=== PATIENT | male | born 1985 | race Caucasian/White ===

== ENCOUNTER 2019-11-29 23:41 | Emergency (ER) | payer OTHER ==
--- NOTE | 2019-11-29 23:59 | PDOC ---
Attending Attestation - Resident Resident Name: Lamonte Palafox - ED Attending Attestation I have performed the following: I have examined & evaluated the patient, The case was reviewed & discussed with the resident, I agree w/resident's findings & plan
[2019-11-30 00:06] VITALS: TEMP 98; BMI 22.2
--- NOTE | 2019-11-30 00:28 | PDOC ---
History of Present Illness - General Chief Complaint: Psychiatric Stated Complaint: PANICK ATTACK Time Seen by Provider: 11/29/19 23:55 - History of Present Illness Initial Comments: 11/30/19 00:22 34 yo M with h/o asthma, who p/w palpitations, sob, nervousness, tremors. Patient reports 3 weeks of intermittent SOB, palpitations, nervousness, and tremors with no identifiable triggers or alleviators. Symptoms resolve spontaneously following minutes. Patient unable to quantify amount of time. Patient denies KUO, vision change, cough, wheezing, orthopena, PND, leg swelling/pain, N/V, F,C, CP, SOB, urinary complaints, hematuria, BPR, abdominal pain, diarrhea, constipation, lightheadedness, weakness, sensory changes. PMHx: as noted above. Denies h/o PE/DVt, malignancy, CAD/WI, stress testing, hormone therapy, recent travels/surgery/prolonged immobilization, trauma. ROS: as noted SHx: Denies Etoh, IVDA, tobacco use Allergies: NKDA Past History - Past Medical History Allergies/Adverse Reactions: Allergies Allergy/AdvReac Type Severity Reaction Status Date / Time salmon oil Allergy Verified 11/29/19 23:56 sesame seed Allergy Verified 11/29/19 23:56 tree nut Allergy Verified 11/29/19 23:56 Asthma: Yes COPD: No Psychiatric Problems: Yes (x 3 weeks) - Psycho Social/Smoking Cessation Hx Smoking History: Current every day smoker Information on smoking cessation initiated: No Review of Systems - Review of Systems Comments:: 11/30/19 00:30 GENERAL/CONSTITUTIONAL: No fever or chills. No weakness. HEAD, EYES, EARS, NOSE AND THROAT: No change in vision. No ear pain or discharge. No sore throat. CARDIOVASCULAR: No chest pain or shortness of breath RESPIRATORY: No cough, wheezing, or hemoptysis. GASTROINTESTINAL: No nausea, vomiting, diarrhea or constipation. GENITOURINARY: No dysuria, frequency, or change in urination. MUSCULOSKELETAL: No joint or muscle swelling or pain. No neck or back pain. SKIN: No rash NEUROLOGIC: + tremors. No headache, vertigo, loss of consciousness, or change in strength/sensation. ENDOCRINE: No increased thirst. No abnormal weight change HEMATOLOGIC/LYMPHATIC: No anemia, easy bleeding, or history of blood clots. ALLERGIC/IMMUNOLOGIC: No hives or skin allergy. *Physical Exam - Vital Signs Last Vital Signs Temp Pulse Resp BP Pulse Ox 98 F 77 18 104/55 L 99 11/29/19 23:51 11/29/19 23:51 11/29/19 23:51 11/29/19 23:51 11/29/19 23:51 - Physical Exam 11/30/19 00:30 GENERAL: Awake, alert, and fully oriented, in no acute distress HEAD: No signs of trauma, normocephalic, atraumatic EYES: PERRLA, EOMI, sclera anicteric, conjunctiva clear ENT: Hearing grossly normal, nares patent, oropharynx clear without exudates. Moist mucosa NECK: Normal ROM, supple, no lymphadenopathy, JVD, or masses LUNGS: No distress, speaks full sentences, clear to auscultation bilaterally HEART: Regular rate and rhythm, normal S1 and S2, no murmurs, rubs or gallops, peripheral pulses normal and equal bilaterally. ABDOMEN: Soft, nontender, normoactive bowel sounds. No guarding, no rebound. No masses EXTREMITIES : BL antecubital track tian. Normal inspection, Normal range of motion, no edema. No clubbing or cyanosis NEUROLOGICAL: Cranial nerves II through XII grossly intact. Normal speech, normal gait, no focal sensorimotor deficits SKIN: Warm, Dry, normal turgor, no rashes or lesions noted ED Treatment Course - LABORATORY CBC & Chemistry Diagram: 11/30/19 00:07 11/30/19 00:07 Medical Decision Making - Medical Decision Making 11/30/19 00:25 34 yo M with h/o asthma, who p/w palpitations, sob, nervousness, tremors x 3 weeks intermittently. Vitals wnl, AF, A&Ox3. Exam notable for BL antecubital track tian. Otherwise unremarkable. Denies KUO, vision change, cough, wheezing, leg swelling/pain, N/V, F,C, CP, SOB, urinary complaints, hematuria, BPR, abdominal pain, diarrhea, constipation, lightheadedness, weakness, sensory changes. ACS /WI r/o. PERC neg PE. Will assess for thyroid dysfunction, electrolyte abnml, cardiac dyssarythmia, acid-base disturbances, toxic and metabolic derangements infection. Currently asymptomatic. Will reassess. Ed Course: Patient unwilling to provide urine 11/30/19 00:43 EKG: TWI V2-V2 NSR with absent FAIZA, STD. Nml interval duration and axis. Nml R wave progression. Absent Q waves. CBC: Unremarkable 11/30/19 00:48 Advised to f/u cardiology 11/30/19 01:13 Pt. walked out of ED 11/30/19 01:41 Laboratory Tests 11/30/19 11/30/19 00:07 00:07 WBC 6.5 Hgb 13.0 Hct 38.2 MPV 9.1 Sodium 141 Potassium 4.4 BUN 11.6 Creatinine 0.9 Troponin I < 0.02 TSH 0.90 Alcohol, Quantitative < 3 Patient discharged with return precautions. Discharge - Discharge Information Problems reviewed: Yes Clinical Impression/Diagnosis: Heart palpitations Condition: Stable Disposition: ELOPED - Admission No - Follow up/Referral Referrals: Osmar Cochran MD [Staff Physician] - - Patient Discharge Instructions Patient Printed Discharge Instructions: DI for Palpitations Additional Instructions: Please return to the emergency department with any new or worsening symptoms or concerns. Please follow up with your adolescent specialist and primary care physician within 72 hours. - Post Discharge Activity
--- NOTE | 2019-11-30 00:40 | PDOC ---
Attending Attestation - Resident Resident Name: Lamonte Palafox - ED Attending Attestation I have performed the following: I have examined & evaluated the patient, The case was reviewed & discussed with the resident, I agree w/resident's findings & plan - HPI HPI: 11/30/19 02:08 Pt is having a panic attack, he says, requesting ativan rx. - Physicial Exam PE: 11/30/19 02:10 Agree with resident exam - Medical Decision Making 11/30/19 02:09 Patient Name: Moreno JorgeBirth Date: 1985 Address: [address] [place] [id number]: Male Rx Written Rx Dispensed Drug Quantity Days Supply Prescriber Name Payment Method Dispenser lorazepam 1 mg tablet 12 6 Kang Tejada MD [id number] Patient Name: Moreno JorgeBirth Date: 1985 Address: [address] [place] [id number]: Male Rx Written Rx Dispensed Drug Quantity Days Supply Prescriber Name Payment Method Dispenser chlordiazepoxide 25 mg capsule 18 3 Sun Hall, [employer] [facility] Patient Name: Moreno JorgeBirth Date: 1985 Address: [address] [place] [id number]: Male Rx Written Rx Dispensed Drug Quantity Days Supply Prescriber Name Payment Method Dispenser methylphenidate 20 mg tablet 90 30 FingestDebbie dunn MD [facility] lorazepam 0.5 mg tablet 120 30 FingestDebbie dunn MD [facility] methylphenidate 20 mg tablet 90 30 FingestDebbie dunn MD [facility] methylphenidate 20 mg tablet 30 30 FingestDebbie dunn MD [employer] [facility] lorazepam 0.5 mg tablet 120 30 FingestDebbie dunn MD [facility] [employer]. Pt was confronted with the above meds. He originally denied getting the meds, then stormed out of the ER when he realized that we would not refill his ativan Rx.
[2019-11-30] MEDS ORDERED: LORazepam 2 MG TABLET PO ONE (00:43)
[2019-11-30] MEDS ORDERED: LORazepam 0.5 MG TABLET ONE (00:45)
[2019-11-30 00:51] VITALS: BP 118/71; PULSE 69
[2019-11-30 00:53] LABS: BASO % 0.5 % (0-2.0); EOS % 6.3 % (0-4.5); HEMATOCRIT 38.2 % (35.4-49); LYMPH % 25.8 % (8-40); MCH 29.2 pg (25.7-33.7); MCHC 33.9 g/dl (32.0-35.9); MEAN CELL VOLUME 86.1 fl (80-96); MEAN PLT VOLUME 9.1 fl (7.5-11.1); MONO % 10.4 % (3.8-10.2); PLATELET COUNT 314 K/MM3 (134-434); RBC 4.44 M/mm3 (4.00-5.60); RDW 14.3 % (11.9-15.9); WHITE BLOOD COUNT 6.5 K/mm3 (4.0-10.0)
[2019-11-30 01:02] LABS: INR 1.06 (0.83-1.09); PROTHROMBIN TIME (PATIENT) 12.5 SEC (9.7-13.0)
[2019-11-30 01:26] LABS: ALBUMIN 3.6 g/dl (3.4-5.0); ALK PHOS 74 U/L (45-117); ANION GAP 6 MMOL/L (8-16); BILIRUBIN,TOTAL 0.6 mg/dL (0.2-1); BLOOD UREA NITROGEN 11.6 mg/dL (7-18); CALCIUM 8.5 mg/dL (8.5-10.1); CHLORIDE 107 mmol/L (98-107); CO2 29 mmol/L (21-32); CREATININE 0.9 mg/dL (0.55-1.3); GLUCOSE,RANDOM 95 mg/dL (74-106); POTASSIUM 4.4 mmol/L (3.5-5.1); SGOT/AST 16 U/L (15-37); SGPT/ALT 19 U/L (13-61); SODIUM 141 mmol/L (136-145); TOT PROT 7.2 g/dl (6.4-8.2)
--- NOTE | 2019-11-30 10:29 | EKG ---
Test Reason : Blood Pressure : / mmHG Vent. Rate : 066 BPM Atrial Rate : 066 BPM P-R Int : 150 ms QRS Dur : 088 ms QT Int : 374 ms P-R-T Axes : 064 051 041 degrees QTc Int : 392 ms NORMAL SINUS RHYTHM POSSIBLE LEFT ATRIAL ENLARGEMENT BORDERLINE ECG NO PREVIOUS ECGS AVAILABLE Confirmed by Deshawn Luong MD ([id number]) on 11/30/2019 10:28:28 AM Referred By: Confirmed By:Deshawn Luong MD
== END 2019-11-30 01:23 | disposition left against medical advice (07) ==
LOC: JER 23:41
DX: R00.2 Palpitations (principal); Z91.018 Allergy to other foods
CPT/HCPCS: 36415; 80053; 80307; 82550; 84443; 84484; 85025; 85610; 86850; 86900; 86901; 93005; 93010; 99284-25